=== PATIENT | female | born 2000 | race Caucasian/White ===

== ENCOUNTER 2023-08-01 23:23 | Emergency (ER) | payer BC ==
[~2023-08-01] VITALS: Ht 152.4 cm; Wt 77.1 kg
[2023-08-02] MEDS ORDERED: PREDNISONE50 MG PO (00:43)
== END 2023-08-02 00:54 | disposition home or self-care (01) ==
LOC: ED 23:23
DX: H66.91 Otitis media, unspecified, right ear (principal); R68.84 Jaw pain; Z88.0 Allergy status to penicillin